=== PATIENT | male | born 1990 | race Caucasian/White ===

== ENCOUNTER 2019-08-02 08:29 | Emergency (ER) | payer SELFPAY ==
[~2019-08-02] VITALS: Ht 165.1 cm; Wt 84.4 kg
[2019-08-02 08:32] VITALS: Ht 165.1 cm; Wt 84.4 kg
[2019-08-02 10:59] VITALS: BP 121/80
== END 2019-08-02 10:59 | disposition home or self-care (01) ==
LOC: ED 08:29
DX: R07.89 Other chest pain (principal)
CPT/HCPCS: Q0092

== ENCOUNTER 2019-08-29 09:27 | Emergency (ER) | payer SELFPAY ==
[~2019-08-29] VITALS: Ht 165.1 cm; Wt 87.1 kg
[2019-08-29 09:33] VITALS: Ht 165.1 cm; Wt 87.1 kg
[2019-08-29 10:17] VITALS: BP 128/74
== END 2019-08-29 10:07 | disposition home or self-care (01) ==
LOC: ED 09:27
DX: T63.441A Toxic effect of venom of bees, accidental (unintentional), initial encounter (principal); Y92.89 Other specified places as the place of occurrence of the external cause